=== PATIENT | female | born 1990 | race Caucasian/White ===

== ENCOUNTER 2022-06-11 06:19 | Day surgery (SDC) | payer SELFPAY ==
[2022-06-05 14:07] VITALS: BMI 25.4
[2022-06-11] MEDS ORDERED: BUPIVACAINE HCL/PF 2.5 MG/ML - 30 ML VIAL IJ ONE (07:24)
[2022-06-11] MEDS ORDERED: BACITRACIN 15 GM TUBE TOPICAL OINTMENT ONE (07:24)
[2022-06-11] MEDS ORDERED: EPINEPHrine/PF 1 MG/1 ML (1:1,000) AMPULE ONE (07:24)
[2022-06-11] MEDS ORDERED: BUPIVACAINE HCL/PF 0.25% (2.5MG/ML) 10 ML VIAL ONE (07:24)
[2022-06-11] MEDS ORDERED: BUPIVACAINE LIPOSOME/PF (EXPAREL) 266 MG/20 ML VIAL ONE (07:35)
[2022-06-11] MEDS ORDERED: ROCURONIUM BROMIDE 50 MG/5 ML SYRINGE ONE ×2 (07:42→08:59)
[2022-06-11] MEDS ORDERED: PROPOFOL 20 ML ONE (07:42)
[2022-06-11] MEDS ORDERED: MIDAZOLAM HCL 2 MG/2 ML SINGLE DOSE VIAL ONE ×2 (07:42)
[2022-06-11] MEDS ORDERED: HEPARIN NA (PORCINE) 5,000 UNITS/ML 1ML VIAL ONE (08:16)
[2022-06-11] MEDS ORDERED: ceFAZolin SODIUM 1 GM VIAL ONE ×3 (08:16→21:03)
[2022-06-11] MEDS ORDERED: DEXAMETHASONE SOD PHOSPHATE 4 MG/1 ML VIAL ONE (08:25)
[2022-06-11] MEDS ORDERED: ONDANSETRON 4 MG/2 ML VIAL ONE ×2 (08:25→11:14)
[2022-06-11] MEDS ORDERED: ONDANSETRON 4 MG/2 ML VIAL IVPUSH PRN (11:45)
[2022-06-11] MEDS ORDERED: LACTATED RINGERS SOLUTION 1,000 ML IV SCH ×2 (11:45→12:00)
[2022-06-11] MEDS ORDERED: oxyCODONE HCL 5 MG TABLET PO PRN (11:49)
[2022-06-11] MEDS ORDERED: ONDANSETRON 4 MG/2 ML VIAL IVPB PRN (11:49)
[2022-06-11] MEDS ORDERED: ALPRAZolam 0.25 MG TABLET PO PRN (11:52)
[2022-06-11] MEDS ORDERED: FENTANYL CITRATE/PF 50 MCG/ML VIAL ONE ×2 (12:05→12:24)
[2022-06-11] MEDS ORDERED: DEXTROSE 5%-WATER - 50 ML IVPB ONE ×2 (14:54→21:03)
[2022-06-11] MEDS: CEFAZOLIN 1 GM in DEXTROSE 5%-WATER - 50 ML IVPB SCH ×2 (15:04→21:13)
[2022-06-11] MEDS: oxyCODONE HCL 5 MG TABLET PO PRN (23:37)
[2022-06-12 00:54] VITALS: RESP 17
[2022-06-12] MEDS ORDERED: DEXTROSE 5%-WATER - 50 ML IVPB ONE ×2 (01:18→07:44)
[2022-06-12] MEDS ORDERED: ceFAZolin SODIUM 1 GM VIAL ONE ×2 (01:18→07:44)
[2022-06-12] MEDS: CEFAZOLIN 1 GM in DEXTROSE 5%-WATER - 50 ML IVPB SCH ×2 (02:18→08:21)
[2022-06-12] MEDS: oxyCODONE HCL 5 MG TABLET PO PRN (06:02)
[2022-06-12 06:30] VITALS: BP 126/72; PULSE 81; TEMP 98.2
[2022-06-12] MEDS ORDERED: HEPARIN NA (PORCINE) 5,000 UNITS/ML 1ML VIAL SQ SCH (08:00)
== END 2022-06-12 11:20 | disposition home or self-care (01) ==
LOC: EDBD → FASUSAT 06:19 → FASU 06:19 → FM/S 13:29 → FASUSAT 06-12 11:20
PROVIDERS: ATTEND Plastic Surgery
PROC: 0J080ZZ Alteration of Abdomen Subcutaneous Tissue and Fascia, Open Approach (ICD-10-PCS; principal; 2022-06-11 08:30)
DX: M95.8 Other specified acquired deformities of musculoskeletal system (principal)
CPT/HCPCS: 81025; 94760; J1644